=== PATIENT | male | born 1995 | race Caucasian/White ===

== ENCOUNTER 2017-09-16 06:32 | Emergency (ER) | payer OTHER ==
[~2017-09-16] VITALS: Ht 193 cm; Wt 73.0 kg
[~2017-09-16 06:32] MED LIST: EFFE75CA PO; SERO400T3 PO
[2017-09-16 06:35] VITALS: BP 134/77; PULSE 82; RESP 18; TEMP 98.3
--- NOTE | 2017-09-16 07:35 | PD ---
HPI Chief Complaint: Fall Time Seen by Provider: 07:11 Travel History International Travel<30 days: No Contact w/Intl Traveler<30days: No Traveled to known affect area: No History of Present Illness HPI This is a 21-year-old male with a history of hiatal hernia, peptic ulcer disease , presents here from work after he slipped and fell while walking upstairs and hit his right knee. Patient reports significant pain in his suprapatellar area. He reports pain with attempted flexion. The patient denies any numbness or tingling of his lower extremity. There are no other injuries reported at this time. [facility] Past Medical History Gastrointestinal Disorders: Yes (ulcer) Hiatal Hernia: Yes Social History Alcohol Use: Yes Tobacco Use: Yes Substance Use: No Allergies-Medications (Allergen,Severity, Reaction): Coded Allergies: Sulfa (Sulfonamide Antibiotics) (Unverified Allergy, Unknown, 05/09/17) Reported Meds & Prescriptions Reported Meds & Active Scripts Active Arthrotec 75 (Diclofenac-Misoprostol) 75-0.2 Mg Tab 1 Tab PO BID Reported Effexor Xr (Venlafaxine HCl) 75 Mg Cap 75 Mg PO DAILY Seroquel XR 400 mg (Quetiapine Fumarate) 400 Mg Tab 400 Mg PO HS Review of Systems Except as stated in HPI: all other systems reviewed are Neg Musculoskeletal: Positive: Limited ROM (secondary to pain), Pain (right knee), Other (abrasion to the suprapatellar area), No: Weakness, Edema Neurologic: No: Paresthesia, Sensory Disturbance Physical Exam Narrative GENERAL: Well-nourished, well-developed patient. SKIN: Focused skin assessment warm/dry. HEAD: Normocephalic/atraumatic. EYES: No scleral icterus. No injection or drainage. NECK: Supple, trachea midline. CARDIOVASCULAR: Regular rate and rhythm without murmurs, gallops, or rubs. MUSCULOSKELETAL: On examination patient's right lower extremity, there is a slight abrasion to the suprapatellar region. There is no obvious distraction or deformity to the patella. There is point tenderness to the superior patellar region. There is no ligament and stability. No posterior anterior positive drawer test. Cap refill was less than 3 seconds on the foot. There was palpable dorsalis pedis pulses. Sensation was grossly intact to the lower extremity. NEUROLOGICAL: Awake and alert. Cranial nerves II through XII intact. Motor grossly within normal limits. Five out of 5 muscle strength in all muscle groups. Normal speech. Data Data Last Documented VS Vital Signs Date Time Temp Pulse Resp B/P (MAP) Pulse Ox O2 Delivery O2 Flow Rate FiO2 09/16/17 06:42 98 Room Air 09/16/17 06:35 98.3 82 18 134/77 (96) Orders Orders Knee, [employer] Add Vws(4+Vws) (09/16/17 07:14) [employer] Request For Service (09/16/17 08:01) [facility] Medical Decision Making Medical Screen Exam Complete: Yes Emergency Medical Condition: Yes Differential Diagnosis Fracture versus contusion versus ligament this injury Narrative Course 21-year-old male who presents with right knee pain after slipping on stairs at work and striking the top of his knee On the stair. The patient has significant pain and is superior knee. Patient reports difficult to bear weight secondary to the pain. He'll be placed in a right knee immobilizer. He' ll be instructed to ice it. We crutches for nonweightbearing. This is a Workmen's Comp. case. He'll be told to stay out of work until cleared by Workmen's Comp. physician. He will be given a prescription for Arthrotec as he does have a history of peptic ulcer disease. Diagnosis Primary Impression: Contusion of right patella Additional Impression: Contusion of right knee Additional Instructions: Follow up with Workmen's Comp. physician. No weightbearing until evaluated by Workmen's Comp. physician. Med/Other Pt SpecificInfo: Prescription(s) given Scripts Diclofenac-Misoprostol (Arthrotec 75) 75-0.2 Mg Tab 1 TAB PO BID for Pain Management, #14 TAB 0 Refills Prov: Remy Danielson MD 09/16/17 Disposition: 01 DISCHARGE HOME Condition: Stable Remy Danielson MD Sep 16, 2017 07:35
--- NOTE | 2017-09-16 07:57 | RADRPT ---
EXAM DATE/TIME: 09/16/2017 07:32 [facility] COMPARISON: No previous studies available for comparison. INDICATIONS : Right knee pain post fall today MEDICAL HISTORY : None. SURGICAL HISTORY : None. ENCOUNTER: Initial ACUITY: 1 day PAIN SCORE: 7/10 LOCATION: Right anterior knee FINDINGS: The bony structures are grossly intact. No joint effusion is seen. No definite fracture or joint di slocation is seen. CONCLUSION: Negative for fracture or dislocation. Follow up in 7-10 days is suggested if symptoms persist. Pio Shaw MD FACR on September 16, 2017 at 7:54 Board Certified Radiologist. This report was verified electronically.
[2017-09-16] MEDS ORDERED: ARTHTAB5 PO (08:03)
== END 2017-09-16 09:20 | disposition home or self-care (01) ==
LOC: NEPE 06:32
DX: S80.01XA Contusion of right knee, initial encounter (principal); W10.9XXA Fall (on) (from) unspecified stairs and steps, initial encounter; Y99.0 Civilian activity done for income or pay; Z72.0 Tobacco use; Z88.2 Allergy status to sulfonamides; Z79.899 Other long term (current) drug therapy
CPT/HCPCS: 73564; 99284; E0113; L1830